=== PATIENT | female | born 2000 ===

== ENCOUNTER 2021-02-23 16:34 | Inpatient (IN) | payer MEDICAID ==
[2021-02-23] MEDS ORDERED: Misoprostol 200 MCG Tab PO PRN (16:39)
[2021-02-23] MEDS ORDERED: Carboprost Tromethamine 250 MCG/1 ML Amp IM PRN (16:39)
[2021-02-23] MEDS ORDERED: Nalbuphine 10 MG/1 ML Vial IVPUSH PRN (16:39)
[2021-02-23] MEDS ORDERED: Butorphanol 1 MG/ML SDV IVPUSH PRN (16:39)
[2021-02-23] MEDS ORDERED: Water For Irrigation,Sterile 1,000 ML Container IRR PRN (16:39)
[2021-02-23] MEDS ORDERED: Lidocaine 1% 50 ML MDV INJECT PRN (16:39)
[2021-02-23] MEDS ORDERED: Tranexamic Acid 1,000 MG in Sodium Chloride 0.9% 100 ML IV PRN (16:39)
[2021-02-23] MEDS ORDERED: Ondansetron 4 MG/2 ML SDV IVPUSH PRN (16:39)
[2021-02-23] MEDS ORDERED: Methylergonovine 0.2 MG/1 ML Amp IM PRN (16:39)
[2021-02-23] MEDS ORDERED: Sodium Chloride 0.9% 2.5 ML Syringe FLUSH PRN (16:39)
[2021-02-23] MEDS ORDERED: Sodium Chloride 0.9% 10 ML SDV IV PRN (16:39)
[2021-02-23] MEDS ORDERED: Sodium Chloride 0.9% 10 ML Syringe FLUSH PRN (16:39)
--- NOTE | 2021-02-23 16:43 | PCM.LDHP ---
L&D History of Present Illness - General Date of Service: 02/23/21 Admit Problem/Dx: Admission Diagnosis/Problem Admission Diagnosis/Problem 02/23/21 16:38 presenting to L&D for elective IOL at 39 2/7 weeks (BRITTA: 02/28/21 by LMP and early ultrasound). O+, Rubella immune, GBS negative. Fundal height low for dates noted in third trimester. Growth ultrasound on 02/06/21 at 36 6/7 weeks noted EFW 2365 grams (5 lb 3 oz); 5th %ile. NSTs at 38 and 39 weeks reactive and reassuring. Unremarkable course otherwise. Vertex presentation by José Miguel's; confirmed by handheld ultrasound. 02/23/21 16:44 Source of Information: Patient History Limitations: Reports: No Limitations - Related Data Allergies/Adverse Reactions: Allergies Allergy/AdvReac Type Severity Reaction Status Date / Time No Known Allergies Allergy Verified 02/13/21 14:55 H&P Review of Systems - Review of Systems: Review Of Systems: See Below General: Reports: No Symptoms HEENT: Reports: No Symptoms Pulmonary: Reports: No Symptoms Cardiovascular: Reports: No Symptoms Gastrointestinal: Reports: No Symptoms Genitourinary: Reports: No Symptoms Musculoskeletal: Reports: No Symptoms Skin: Reports: No Symptoms Psychiatric: Reports: No Symptoms Neurological: Reports: No Symptoms Hematologic/Lymphatic: Reports: No Symptoms Immunologic: Reports: No Symptoms L&D Exam - Exam Exam: See Below - OB Specific Movement: Active Heart Tones: Present Heart Rate (FHR) Variability: Moderate (6-25 bpm) Presentation: Vertex (confirmed by handhelf ultrasoun) - Exam General: Alert, Oriented Lungs: Normal Respiratory Effort Cardiovascular: Regular Rate, Regular Rhythm GI/Abdominal Exam: Soft, Non-Tender Rectal Exam: Deferred Genitourinary: Deferred Back Exam: Normal Inspection, Full Range of Motion Extremities: Normal Inspection, Normal Range of Motion, Non-Tender, Normal Capillary Refill Skin: Warm, Dry, Intact Neurological: Strength Equal Bilateral, Normal Speech, Normal Tone, Sensation Intact Psychiatric: Alert, Normal Affect, Normal Mood - Problem List (1) Supervision of normal IUP (intrauterine ) in primigravida SNOMED Code(s): 14741519, 094832291, 909257175, 790236379 ICD Code: Z34.00 - ENCNTR FOR SUPRVSN OF NORMAL FIRST , UNSP TRIMESTER Status: Acute Priority: High Current Visit: Yes Qualifiers: Trimester: third trimester Qualified Code(s): Z34.03 - Encounter for supervision of normal first , third trimester (2) Fundal height low for dates SNOMED Code(s): 355947646 ICD Code: O26.849 - UTERINE SIZE-DATE DISCREPANCY, UNSPECIFIED TRIMESTER Status: Acute Priority: High Current Visit: Yes Qualifiers: Trimester: third trimester Qualified Code(s): O26.843 - Uterine size-date discrepancy, third trimester Problem List Initiated/Reviewed/Updated: Yes Assessment/Plan Comment:: Admit A: presenting to L&D for elective IOL at 39 2/7 weeks ([place]TA: 02/28/21 by LMP and early ultrasound). O+, Rubella immune, GBS negative. Fundal height low for dates noted in third trimester. Growth ultrasound on 02/06/21 at 36 6/7 weeks noted EFW 2365 grams (5 lb 3 oz); 5th %ile. NSTs at 38 and 39 weeks reactive and reassuring. Unremarkable course otherwise. Vertex presentation by José Miguel's; confirmed by handheld ultrasound. P: Anticipate ; cytotec to pitocin PRN; epidural PRN; Dr. Thayer updated.
[2021-02-23] MEDS ORDERED: Lactated Ringers 1,000 ML IV SCH (16:45)
[2021-02-23] MEDS ORDERED: Oxytocin/0.9 % Sodium Chloride 30 UNIT/500 ML BAG IV SCH ×2 (16:45→17:00)
[2021-02-23] MEDS ORDERED: Misoprostol 25 MCG (1/4 of 100 MCG) Tab PO PRN (16:46)
[2021-02-23] MEDS ORDERED: Terbutaline 1 MG/ML SDV SUBCUT PRN (16:46)
[2021-02-23] MEDS: Misoprostol 25 MCG (1/4 of 100 MCG) Tab VAG PRN ×2 (17:35→21:45)
[2021-02-23] MEDS ORDERED: hydrOXYzine Pamoate 25 MG Cap PO ONE (22:00)
[2021-02-24] MEDS ORDERED: Lidocaine 1% 50 ML MDV ONE (06:44)
--- NOTE | 2021-02-24 07:20 | PCM.DEL ---
L & D Note - General Info Date of Service: 02/24/21 - Delivery Note Labor: Spontaneous Cervical Ripening Method: Misoprostil Delivery Outcome: Livebirth Infant Delivery Method: Spontaneous Vaginal Delivery-Single Presentation: Vertex (confirmed by handhelf ultrasoun) Nuchal Cord: None Anesthesia Type: None Anesthetic: Lidocaine (Xylocaine) 1% Plain (10) Local Anesthetic Volume: Other (10) Amniotic Fluid Description: Meconium Stained Episiotomy Type: None Laceration: 2nd Degree Suture type: Vicryl Suture size: 3-0 Placenta: Intact, Spontaneous Cord: 3 Vessels Estimated Blood Loss: 300 Resuscitation Needed: No Score 1 min: 8 Score 5 min: 9 Second Stage Interventions: Reports: Second Nurse Assessed Progress of Descent, Second Nurse Reviewed Contraction Pattern, Second Nurse Reviewed Heart Tones, Encouragement Given, Pushing Effectively, Pushing, Pulls Own Legs Back Delivery Comments (Free Text/Narrative):: viable female; head delivered with good pushing; shoulders and body followed easily after; baby immediately to mom's abdomen [id number] for assessment; APGARs 8/9; placenta delivered grossly intact, carrillo, 3VC; EBL 300 mL; pitocin to IVF; 2nd degree perineal laceration repaired with 3-0 vicryl; mom and baby left in stable condition with nurse at bedside for assessment; weight: 6 lb 11 oz; - General Info Date of Service: 02/24/21 Admission Dx/Problem (Free Text): Admission Diagnosis/Problem Admission Diagnosis/Problem 02/23/21 16:38 presenting to L&D for elective IOL at 39 2/7 weeks ([place]: 02/28/21 by LMP and early ultrasound). O+, Rubella immune, GBS negative. Fundal height low for dates noted in third trimester. Growth ultrasound on 02/06/21 at 36 6/7 weeks noted EFW 2365 grams (5 lb 3 oz); 5th %ile. NSTs at 38 and 39 weeks reactive and reassuring. Unremarkable course otherwise. Vertex presentation by José Miguel's; confirmed by handheld ultrasound. 02/23/21 16:44 Functional Status: Reports: Pain Controlled - Review of Systems General: Reports: No Symptoms HEENT: Reports: No Symptoms Pulmonary: Reports: No Symptoms Cardiovascular: Reports: No Symptoms Gastrointestinal: Reports: No Symptoms Genitourinary: Reports: No Symptoms Musculoskeletal: Reports: No Symptoms Skin: Reports: No Symptoms Neurological: Reports: No Symptoms Psychiatric: Reports: No Symptoms - Patient Data Weight - Most Recent: 149 lb Lab Results Last 24 Hours: Laboratory Results - last 24 hr 02/23/21 02/23/21 Range/Units 16:58 16:58 WBC 9.03 (4.0-11.0) K/uL RBC 4.84 (4.30-5.90) M/uL Hgb 12.7 (12.0-16.0) g/dL Hct 38.1 (36.0-46.0) % MCV 78.7 L (80.0-98.0) fL MCH 26.2 L (27.0-32.0) pg MCHC 33.3 (31.0-37.0) g/dL RDW Std Deviation 47.5 (28.0-62.0) fl RDW Coeff of Priscilla 17 H (11.0-15.0) % Plt Count 172 (150-400) K/uL MPV 10.10 (7.40-12.00) fL Nucleated RBC % 0.0 /100WBC Nucleated RBCs # 0 K/uL Blood Type O POSITIVE Antibody Screen NEGATIVE Med Orders - Current: Current Medications Butorphanol Tartrate (Butorphanol 1 Mg/Ml Sdv) 1 mg IVPUSH Q1H PRN PRN Reason: Pain (severe 7-10) Carboprost Tromethamine (Carboprost Tromethamine 250 Mcg/1 Ml Amp) 250 mcg IM ASDIRECTED PRN PRN Reason: Post Hemorrhage Oxytocin/Sodium Chloride (Oxytocin 30 Unit/500 Ml-Ns) 30 unit in 500 mls @ 999 mls/hr IV TITRATE JESSE Tranexamic Acid 1,000 mg/ (Sodium Chloride) 110 mls @ 660 mls/hr IV ONETIME PRN PRN Reason: Bleeding Lactated Ringer's (Ringers, Lactated) 1,000 mls @ 150 mls/hr IV ASDIRECTED JESSE Last Infusion: 02/24/21 02:30 Dose: 999 mls/hr Documented by: Oxytocin/Sodium Chloride (Oxytocin 30 Unit/500 Ml-Ns) 30 unit in 500 mls @ 2 mls/hr IV TITRATE JESSE; Protocol Lidocaine HCl (Lidocaine 1% 50 Ml Mdv) 50 ml INJECT ONETIME PRN PRN Reason: Laceration repair Methylergonovine Maleate (Methylergonovine 0.2 Mg/1 Ml Amp) 0.2 mg IM ASDIRECTED PRN PRN Reason: Post Hemorrhage Misoprostol (Misoprostol 200 Mcg Tab) 200 mcg PO ONETIME PRN PRN Reason: Post Hemorrhage Misoprostol (Misoprostol 25 Mcg (1/4 Of 100 Mcg) Tab) 25 mcg VAG Q4H PRN PRN Reason: Cervical Ripening Last Admin: 02/23/21 21:45 Dose: 25 mcg Documented by: Misoprostol (Misoprostol 25 Mcg (1/4 Of 100 Mcg) Tab) 25 mcg PO Q4H PRN PRN Reason: Cervical Ripening Last Admin: 02/23/21 17:38 Dose: 25 mcg Documented by: Nalbuphine HCl (Nalbuphine 10 Mg/1 Ml Vial) 10 mg IVPUSH Q1H PRN PRN Reason: Pain (severe 7-10) Last Admin: 02/24/21 04:14 Dose: 10 mg Documented by: Ondansetron HCl (Ondansetron 4 Mg/2 Ml Sdv) 4 mg IVPUSH Q6H PRN PRN Reason: Nausea/Vomiting Sodium Chloride (Sodium Chloride 0.9% 10 Ml Syringe) 10 ml FLUSH ASDIRECTED PRN PRN Reason: Keep Vein Open Sodium Chloride (Sodium Chloride 0.9% 2.5 Ml Syringe) 2.5 ml FLUSH ASDIRECTED PRN PRN Reason: Keep Vein Open Sodium Chloride (Sodium Chloride 0.9% 10 Ml Sdv) 10 ml IV ASDIRECTED PRN PRN Reason: IV Use Sterile Water (Water For Irrigation,Sterile 1,000 Ml Container) 1,000 ml IRR ASDIRECTED PRN PRN Reason: delivery Terbutaline Sulfate (Terbutaline 1 Mg/Ml Sdv) 0.25 mg SUBCUT ASDIRECTED PRN PRN Reason: Tacysystole Discontinued Medications Hydroxyzine Pamoate (Hydroxyzine Pamoate 25 Mg Cap) 50 mg PO ONETIME ONE Stop: 02/23/21 22:01 Lidocaine HCl (Lidocaine 1% 50 Ml Mdv) Confirm Administered Dose 50 ml .ROUTE .STK-MED ONE Stop: 02/24/21 06:45 - Exam General: Alert, Oriented, Cooperative, No Acute Distress Lungs: Normal Respiratory Effort Cardiovascular: Regular Rate, Regular Rhythm GI/Abdominal Exam: Soft, Non-Tender (Female) Exam: Deferred Back Exam: Normal Inspection, Full Range of Motion Extremities: Normal Inspection, Normal Range of Motion, Non-Tender, No Pedal Edema, Normal Capillary Refill Skin: Warm, Dry, Intact Neurological: No New Focal Deficit, Normal Speech, Normal Tone, Sensation Intact Psy/Mental Status: Alert, Normal Affect, Normal Mood - Problem List & Annotations (1) Supervision of normal IUP (intrauterine ) in primigravida SNOMED Code(s): 19030851, 390606223, 552802602, 736548256 Code(s): Z34.00 - ENCNTR FOR SUPRVSN OF NORMAL FIRST , UNSP TRIMESTER Status: Acute Priority: High Current Visit: Yes Qualifiers: Trimester: third trimester Qualified Code(s): Z34.03 - Encounter for supervision of normal first , third trimester (2) Fundal height low for dates SNOMED Code(s): 542800657 Code(s): O26.849 - UTERINE SIZE-DATE DISCREPANCY, UNSPECIFIED TRIMESTER Status: Acute Priority: High Current Visit: Yes Qualifiers: Trimester: third trimester Qualified Code(s): O26.843 - Uterine size-date discrepancy, third trimester (3) (spontaneous vaginal delivery) SNOMED Code(s): 395033913 Code(s): O80 - ENCOUNTER FOR FULL-TERM UNCOMPLICATED DELIVERY Status: Acute Priority: High Current Visit: Yes - Problem List Review Problem List Initiated/Reviewed/Updated: Yes - Plan Plan:: Admit A: presenting to L&D for elective IOL at 39 2/7 weeks ([place]: 02/28/21 by LMP and early ultrasound). O+, Rubella immune, GBS negative. Fundal height low for dates noted in third trimester. Growth ultrasound on 02/06/21 at 36 6/7 weeks noted EFW 2365 grams (5 lb 3 oz); 5th %ile. NSTs at 38 and 39 weeks reactive and reassuring. Unremarkable course otherwise. Vertex presentation by José Miguel's; confirmed by handheld ultrasound. P: Anticipate ; cytotec to pitocin PRN; epidural PRN; Dr. Thayer updated. Delivery A: viable female; head delivered with good pushing; shoulders and body followed easily after; baby immediately to mom's abdomen [id number] for assessment; APGARs 8/9; placenta delivered grossly intact, carrillo, 3VC; EBL 300 mL; pitocin to IVF; 2nd degree perineal laceration repaired with 3-0 vicryl; mom and baby left in stable condition with nurse at bedside for assessment; weight: 6 lb 11 oz; P: Routine plan of care; Dr. Thayer updated.
[2021-02-24] MEDS ORDERED: Bisacodyl 10 MG Supp RECTAL PRN (07:22)
[2021-02-24] MEDS ORDERED: oxyCODONE 5 MG Tab PO PRN (07:22)
[2021-02-24] MEDS ORDERED: Witch Hazel Medicated Pads 40/Jar TOP PRN (07:22)
[2021-02-24] MEDS ORDERED: Ibuprofen 400 MG Tab PO PRN (07:22)
[2021-02-24] MEDS ORDERED: Lanolin 100% Cream 7 GM Tube TOP PRN (07:22)
[2021-02-24] MEDS ORDERED: Benzocaine/Menthol 20%-0.5% Spray 78 GM Cannister TOP PRN (07:22)
[2021-02-24] MEDS ORDERED: Docusate Sodium 100 MG Cap PO PRN (07:22)
[2021-02-24] MEDS ORDERED: Ibuprofen 800 MG Tab PO PRN (07:22)
[2021-02-24] MEDS ORDERED: Acetaminophen 500 MG Tab PO PRN ×2 (07:22)
--- NOTE | 2021-02-25 10:33 | PCM.DCSUM1 ---
Discharge Summary - Hospital Course Free Text/Narrative:: Kamini is a 21 yo current PPD1 S/P uncomplicated to term NBF. O pos, RI, GBS neg. Patient has no complaints or concerns at this time. Patient is breast and bottlte feeding well, resting comfortably in bed with in bassinet. Patient reports she is eating, voiding, ambulating independently and without difficulty. Patient denies any problems or concerns at this time except mild-moderate intermittent uterine cramping relieved with Ibuprofen. Patient reports small vaginal bleeding with no clots. Patient verbalizes her readiness to be discharged home today. Diagnosis: Stroke: No - Discharge Data Discharge Date: 02/25/21 Discharge Disposition: Home, Self-Care 01 Condition: Good - Referral to Home Health Primary Care Physician: Daniel Thayer MD - Discharge Diagnosis/Problem(s) (1) Lactating mother SNOMED Code(s): 191913083, 492791264 ICD Code: Z39.1 - ENCOUNTER FOR CARE AND EXAMINATION OF LACTATING MOTHER Status: Acute Priority: High Current Visit: Yes (2) (spontaneous vaginal delivery) SNOMED Code(s): 886657655 ICD Code: O80 - ENCOUNTER FOR FULL-TERM UNCOMPLICATED DELIVERY Status: Acute Priority: High Current Visit: Yes - Patient Instructions Diet: Usual Diet as Tolerated, Regular Diet as Tolerated, Drink 8-10+ Glasses/Day Activity: As Tolerated, No Strenuous Activities, Rest and Relax Today Driving: May Drive Today Showering/Bathing: May Shower Showering/Bathing, Other: May sitz bathe for perineal comfort. Notify Provider of: Fever, Increased Pain, Swelling and Redness, Drainage, Nausea and/or Vomiting - Discharge Plan *PRESCRIPTION DRUG MONITORING PROGRAM REVIEWED*: No *COPY OF PRESCRIPTION DRUG MONITORING REPORT IN PATIENT [place]: No Prescriptions/Med Rec: Ibuprofen [Motrin] 800 mg PO Q8H PRN #30 tablet PRN Reason: Pain (Mild 1-3) Home Medications: Home Meds Ibuprofen [Motrin] 800 mg PO Q8H PRN #30 tablet 02/25/21 [Rx] Oxygen Therapy Mode: Room Air Referrals: Rossy Villalpando, SANDY, FLUID DYNAMICIST [Family Provider] - 04/06/21 2:00 pm (You may bring your with you to your appointment. Masks are required.) - Discharge Summary/Plan Comment DC Time >30 min.: No Total # of Minutes for Discharge Time: ASD Discharge Summary/Plan Comment: Hemodynamically stable, afebrile. Independent with ADLs, pain well controlled. Ibuprofen prescription sent to pharmacy. Warning S/Ss, when to call for help discussed, no questions or concerns. F/U in office in 6 weeks for visit or sooner if problem arise. - General Info Date of Service: 02/25/21 Admission Dx/Problem (Free Text: Admission Diagnosis/Problem Admission Diagnosis/Problem 02/23/21 16:38 presenting to L&D for elective IOL at 39 2/7 weeks ([place]: 02/28/21 by LMP and early ultrasound). O+, Rubella immune, GBS negative. Fundal height low for dates noted in third trimester. Growth ultrasound on 02/06/21 at 36 6/7 weeks noted EFW 2365 grams (5 lb 3 oz); 5th %ile. NSTs at 38 and 39 weeks reactive and reassuring. Unremarkable course otherwise. Vertex presentation by José Miguel's; confirmed by handheld ultrasound. 02/23/21 16:44 Subjective Update: Kamini is a 21 yo current PPD1 S/P uncomplicated to term NBF. O pos, RI, GBS neg. Patient has no complaints or concerns at this time. Patient is breast and bottlte feeding well, resting comfortably in bed with in bassinet. Patient reports she is eating, voiding, ambulating independently and without difficulty. Patient denies any problems or concerns at this time except mild-moderate intermittent uterine cramping relieved with Ibuprofen. Patient reports small vaginal bleeding with no clots. Patient verbalizes her readiness to be discharged home today. Functional Status: Reports: Pain Controlled, Tolerating Diet, Ambulating, Urinating - Review of Systems General: Reports: No Symptoms HEENT: Reports: No Symptoms Pulmonary: Reports: No Symptoms Cardiovascular: Reports: No Symptoms Gastrointestinal: Reports: No Symptoms Genitourinary: Reports: No Symptoms Musculoskeletal: Reports: No Symptoms Skin: Reports: No Symptoms Neurological: Reports: No Symptoms Psychiatric: Reports: No Symptoms - Patient Data Vitals - Most Recent: Last Vital Signs Temp 98.1 F 02/25/21 08:00 Pulse 84 02/25/21 08:00 Resp 18 02/25/21 08:00 BP 104/58 L 02/25/21 08:00 Pulse Ox 97 02/25/21 08:00 Weight - Most Recent: 149 lb Lab Results - Last 24 hrs: Laboratory Results - last 24 hr 02/25/21 Range/Units 07:37 Hgb 10.5 L (12.0-16.0) g/dL Hct 31.9 L (36.0-46.0) % Med Orders - Current: Current Medications Acetaminophen (Acetaminophen 500 Mg Tab) 500 mg PO Q4H PRN PRN Reason: Pain (mild 1-3) Acetaminophen (Acetaminophen 500 Mg Tab) 1,000 mg PO Q4H PRN PRN Reason: Pain (mild 1-3) Benzocaine/Menthol (Benzocaine/Menthol 20%-0.5% [place] 78 Gm Cannister) 78 gm TOP ASDIRECTED PRN PRN Reason: Perineal Comfort Measure Last Admin: 02/24/21 09:09 Dose: 1 can Documented by: Bisacodyl (Bisacodyl 10 Mg Supp) 10 mg RECTAL ONETIME PRN PRN Reason: Constipation Docusate Sodium (Docusate Sodium 100 Mg Cap) 100 mg PO Q12H PRN PRN Reason: Constipation Last Admin: 02/24/21 22:11 Dose: 100 mg Documented by: Emollient Ointment (Lanolin 100% Cream 7 Gm Tube) 0 gm TOP ASDIRECTED PRN PRN Reason: Sore Nipples Last Admin: 02/24/21 09:08 Dose: 1 tube Documented by: Ibuprofen (Ibuprofen 400 Mg Tab) 400 mg PO Q4H PRN PRN Reason: Pain (mild 1-3) Ibuprofen (Ibuprofen 800 Mg Tab) 800 mg PO Q6H PRN PRN Reason: Pain (mild 1-3) Last Admin: 02/24/21 09:09 Dose: 800 mg Documented by: Oxycodone HCl (Oxycodone 5 Mg Tab) 5 mg PO Q2H PRN PRN Reason: Pain (severe 7-10) Witch Anamika (Witch Anamika Medicated Pads 40/Jar) 1 pad TOP ASDIRECTED PRN PRN Reason: comfort care Last Admin: 02/24/21 09:08 Dose: 1 tub Documented by: Discontinued Medications Butorphanol Tartrate (Butorphanol 1 Mg/Ml Sdv) 1 mg IVPUSH Q1H PRN PRN Reason: Pain (severe 7-10) Carboprost Tromethamine (Carboprost Tromethamine 250 Mcg/1 Ml Amp) 250 mcg IM ASDIRECTED PRN PRN Reason: Post Hemorrhage Hydroxyzine Pamoate (Hydroxyzine Pamoate 25 Mg Cap) 50 mg PO ONETIME ONE Stop: 02/23/21 22:01 Last Admin: 02/24/21 07:29 Dose: Not Given Documented by: Oxytocin/Sodium Chloride (Oxytocin 30 Unit/500 Ml-Ns) 30 unit in 500 mls @ 999 mls/hr IV TITRATE JESSE Tranexamic Acid 1,000 mg/ (Sodium Chloride) 110 mls @ 660 mls/hr IV ONETIME PRN PRN Reason: Bleeding Lactated Ringer's (Ringers, Lactated) 1,000 mls @ 150 mls/hr IV ASDIRECTED JESSE Last Infusion: 02/24/21 02:30 Dose: 999 mls/hr Documented by: Oxytocin/Sodium Chloride (Oxytocin 30 Unit/500 Ml-Ns) 30 unit in 500 mls @ 2 mls/hr IV TITRATE JESSE; Protocol Lidocaine HCl (Lidocaine 1% 50 Ml Mdv) 50 ml INJECT ONETIME PRN PRN Reason: Laceration repair Lidocaine HCl (Lidocaine 1% 50 Ml Mdv) Confirm Administered Dose 50 ml .ROUTE .STK-MED ONE Stop: 02/24/21 06:45 Methylergonovine Maleate (Methylergonovine 0.2 Mg/1 Ml Amp) 0.2 mg IM ASDIRECTED PRN PRN Reason: Post Hemorrhage Misoprostol (Misoprostol 200 Mcg Tab) 200 mcg PO ONETIME PRN PRN Reason: Post Hemorrhage Misoprostol (Misoprostol 25 Mcg (1/4 Of 100 Mcg) Tab) 25 mcg VAG Q4H PRN PRN Reason: Cervical Ripening Last Admin: 02/23/21 21:45 Dose: 25 mcg Documented by: Misoprostol (Misoprostol 25 Mcg (1/4 Of 100 Mcg) Tab) 25 mcg PO Q4H PRN PRN Reason: Cervical Ripening Last Admin: 02/23/21 17:38 Dose: 25 mcg Documented by: Nalbuphine HCl (Nalbuphine 10 Mg/1 Ml Vial) 10 mg IVPUSH Q1H PRN PRN Reason: Pain (severe 7-10) Last Admin: 02/24/21 04:14 Dose: 10 mg Documented by: Ondansetron HCl (Ondansetron 4 Mg/2 Ml Sdv) 4 mg IVPUSH Q6H PRN PRN Reason: Nausea/Vomiting Sodium Chloride (Sodium Chloride 0.9% 10 Ml Syringe) 10 ml FLUSH ASDIRECTED PRN PRN Reason: Keep Vein Open Sodium Chloride (Sodium Chloride 0.9% 2.5 Ml Syringe) 2.5 ml FLUSH ASDIRECTED PRN PRN Reason: Keep Vein Open Sodium Chloride (Sodium Chloride 0.9% 10 Ml Sdv) 10 ml IV ASDIRECTED PRN PRN Reason: IV Use Sterile Water (Water For Irrigation,Sterile 1,000 Ml Container) 1,000 ml IRR ASDIRECTED PRN PRN Reason: delivery Terbutaline Sulfate (Terbutaline 1 Mg/Ml Sdv) 0.25 mg SUBCUT ASDIRECTED PRN PRN Reason: Tacysystole - Exam General: Reports: Alert, Oriented, Cooperative, No Acute Distress HEENT: Reports: Pupils Equal, Pupils Reactive, Mucous Membr. Moist/[place] Neck: Reports: Supple Lungs: Reports: Clear to Auscultation, Normal Respiratory Effort Cardiovascular: Reports: Regular Rate, Regular Rhythm GI/Abdominal Exam: Normal Bowel Sounds, Soft, Non-Tender, No Organomegaly, No Distention (Female) Exam: Normal External Exam, Enlarged Uterus, Vaginal Bleeding Rectal (Female) Exam: Deferred Back Exam: Reports: Normal Inspection, Full Range of Motion Extremities: Normal Inspection, Normal Range of Motion, Non-Tender, No Pedal Edema, Normal Capillary Refill Skin: Reports: Warm, Dry, Intact Wound/Incisions: Reports: No Drainage Neurological: Reports: No New Focal Deficit Psy/Mental Status: Reports: Alert, Normal Affect, Normal Mood
== END 2021-02-25 13:23 | disposition home or self-care (01) | DRG 807 ==
LOC: MW.OBCHECK 16:34 → MW.OB 16:36 → OBSVTOIN 02-24 06:42 → MW.OB 02-24 10:00
PROVIDERS: ADMIT Obstetrics & Gynecology; ATTEND Nurse Practitioner Women's Health
PROC: 10E0XZZ Delivery of Products of Conception, External Approach (ICD-10-PCS; principal; 2021-02-24)
PROC: 0KQM0ZZ Repair Perineum Muscle, Open Approach (ICD-10-PCS; 2021-02-24)
PROC: 3E0P7VZ Introduction of Hormone into Female Reproductive, Via Natural or Artificial Opening (ICD-10-PCS; 2021-02-24)
DX: O26.843 Uterine size-date discrepancy, third trimester (principal); Z37.0 Single live birth; Z3A.39 39 weeks gestation of pregnancy; O77.0 Labor and delivery complicated by meconium in amniotic fluid; O70.1 Second degree perineal laceration during delivery
CPT/HCPCS: 36415; 59025; 59409; 85014; 85018; 85027; 86592; 86850; 86900; 86901; A9270-GY; J2001; J2300; J7120